=== PATIENT | female | born 1985 | race Two or more races ===

== ENCOUNTER 2018-03-12 14:02 | Emergency (ER) | payer OTHER ==
[2018-03-12 15:43] VITALS: BP 117/62
== END 2018-03-12 15:43 | disposition home or self-care (01) ==
LOC: ED 14:02
DX: O21.2 Late vomiting of pregnancy (principal); O99.613 Diseases of the digestive system complicating pregnancy, third trimester; Z3A.31 31 weeks gestation of pregnancy